=== PATIENT | male | born 1945 ===

== ENCOUNTER 2017-01-09 11:07 | Emergency (ER) | payer BC ==
[~2017-01-09] VITALS: Ht 165.1 cm; Wt 65.0 kg
[2017-01-09 11:13] VITALS: TEMP 36.5; Ht 165.1 cm; Wt 65.0 kg
[2017-01-09] MEDS ORDERED: SODIUM CHLORIDE 0.9% 1000ML 1,000 ML IV STA (12:31)
--- NOTE | 2017-01-09 12:32 | EMERGENCY ROOM VISIT NOTE ---
History Report prepared by Cecilia: Leticia Pederson Under the Supervision of: Dr. Kendy Meehan D.O. First contact with patient: 12:10 Chief Complaint: DIZZY Stated Complaint: NAUSEA/DIZZINESS Nursing Triage Summary: patient with dizziness and nausea. states he has been flying and driving and not eating or drinking right and wore his hearing add all day yesterday and doesn't usually do that. dizzinees started last night and vomiting today History of Present Illness The patient is a 71 year old male who presents to the Emergency Room with complaints of constant dizziness beginning 6 hours prior to arrival. The patient states that he is experiencing a spinning sensation and is off balanced. He notes slight dizziness when turning his head. He states that sitting up makes him feel better. The patient currently describes his sensation as a head pressure. The patient does note that he has been traveling recently and is not eating and drinking as regularly as when he is at home. Yesterday the patient was walking around [facility]. He states that this is no more activity than normal. The patient about a month ago got one hearing aid, he normally does not wear it all day but yesterday he did. The patient today began to feel nauseated. He then had abdominal pain and vomited. Since these symptoms have resolved. The patient states that he has felt like this before after a night of drinking a lot of alcohol. He notes last night he had one beer. Pt denies headache, change in vision, fevers, chest pain, shortness of breath, diarrhea, numbness, pain with urination, and melena. Source of History: patient Onset: 6 hours [employer] Position: other (global) Quality: other (dizziness) Timing: constant Associated Symptoms: + nausea, + vomiting, + abdominal pain Review of Systems See HPI for pertinent positives & negatives. A total of 10 systems reviewed and were otherwise negative. Past Medical & Surgical Medical Problems: (1) No known health problems Family History Patient reports no known family medical history. Social History Smoking Status: Former Smoker Marital Status: Housing Status: lives with significant other Occupation Status: retired Current/Historical Medications Scheduled PRN Meclizine Hcl (Meclizine Hcl), 25 MG PO TID PRN for Dizziness Allergies Coded Allergies: No Known Allergies (Unverified , 01/09/17) Physical Exam Vital Signs Date Time Temp Pulse Resp B/P (MAP) Pulse Ox O2 Delivery O2 Flow Rate FiO2 01/09/17 15:35 86 18 154/89 96 Room Air 01/09/17 15:07 82 93 Room Air 01/09/17 14:30 72 20 150/80 98 Room Air 01/09/17 13:32 70 20 153/83 98 Room Air 01/09/17 12:52 71 01/09/17 11:13 36.5 85 20 157/84 99 Room Air Physical Exam GENERAL: alert, well appearing, well nourished, no distress, non-toxic EYE EXAM: normal conjunctiva, PERRL and EOM's grossly intact OROPHARYNX: no exudate, no erythema, lips, buccal mucosa, and tongue normal and mucous membranes are moist NECK: supple, no nuchal rigidity, no adenopathy, non-tender LUNGS: Clear to auscultation. Normal chest wall mechanics HEART: no murmurs, S1 normal and S2 normal ABDOMEN: abdomen soft, non-tender, normo-active bowel sounds, no masses, no rebound or guarding. BACK: Back is symmetrical on inspection and there is no deformity, no midline tenderness, no CVA tenderness. SKIN: no rashes and no bruising UPPER EXTREMITIES: upper extremities are grossly normal. LOWER EXTREMITIES: No pitting edema. NEURO EXAM: Normal sensorium, cranial nerves II-XII grossly intact, normal speech, no gross weakness of arms, no gross weakness of legs. No drift. Finger to nose intact. Gross sensation intact. Hints exam negative. Medical Decision & Procedures ER Provider Diagnostic Interpretation: CT result has been interpreted by the radiologist and reviewed by me. CT SCAN OF THE BRAIN WITHOUT IV CONTRAST CLINICAL HISTORY: Headache and dizziness. COMPARISON STUDY: No priors. TECHNIQUE: Unenhanced axial CT scan of the brain is performed from the vertex to the skull base before and following the IV administration of 94 cc of Optiray 320. IV contrast was administered without complication. CT DOSE: 1074.96 mGy.cm FINDINGS: Brain parenchyma: There are age-related involutional changes noting mild subcortical and periventricular microangiopathic change. There is no hemorrhage, mass effect, or evidence of acute territorial ischemia by CT criteria. No enhancing mass lesion is seen on the postcontrast images. Hull-white matter is preserved. No extra-axial fluid collection is seen. Ventricles, sulci, cisterns: Prominent secondary to involutional change. Intracranial vasculature: There is atherosclerotic calcification of the cavernous carotid arteries. Calvarium: Unremarkable. Sinuses and mastoids: Trace fluid is seen within the sphenoid sinuses. Mild mucosal thickening is identified within the right sphenoid sinus and the frontal sinuses. The remaining visualized paranasal sinuses are clear. The mastoid air cells are well pneumatized. Orbits: The bony orbits are grossly intact. IMPRESSION: There is no hemorrhage, enhancing mass, or evidence of acute territorial ischemia by CT criteria. Electronically signed by: Dash Luna M.D. 01/09/2017 2:45 PM Dictated Date/Time: 01/09/2017 2:39 PM Laboratory Results 01/09/17 12:47 Red Blood Count 4.75, Mean Corpuscular Volume 91.2, Mean Corpuscular Hemoglobin 30.7, Mean Corpuscular Hemoglobin Concent 33.7, Mean Platelet Volume 11.0, Neutrophils (%) (Auto) 78.6, Lymphocytes (%) (Auto) 17.5, Monocytes (%) (Auto) 3.0, Eosinophils (%) (Auto) 0.5, Basophils (%) (Auto) 0.3, Neutrophils # (Auto) 6.27, Lymphocytes # (Auto) 1.40, Monocytes # (Auto) 0.24, Eosinophils # (Auto) 0.04, Basophils # (Auto) 0.02 01/09/17 12:47 Test 01/09/17 12:47 01/09/17 13:30 White Blood Count 7.98 K/uL (4.8-10.8) Red Blood Count 4.75 M/uL (4.7-6.1) Hemoglobin 14.6 g/dL (14.0-18.0) Hematocrit 43.3 % (42-52) Mean Corpuscular Volume 91.2 fL (80-100) Mean Corpuscular Hemoglobin 30.7 pg (25-34) Mean Corpuscular Hemoglobin Concent 33.7 g/dl (32-36) Platelet Count 199 K/uL (130-400) Mean Platelet Volume 11.0 fL (7.4-10.4) Neutrophils (%) (Auto) 78.6 % Lymphocytes (%) (Auto) 17.5 % Monocytes (%) (Auto) 3.0 % Eosinophils (%) (Auto) 0.5 % Basophils (%) (Auto) 0.3 % Neutrophils # (Auto) 6.27 K/uL (1.4-6.5) Lymphocytes # (Auto) 1.40 K/uL (1.2-3.4) Monocytes # (Auto) 0.24 K/uL (0.11-0.59) Eosinophils # (Auto) 0.04 K/uL (0-0.5) Basophils # (Auto) 0.02 K/uL (0-0.2) RDW Standard Deviation 42.2 fL (36.4-46.3) RDW Coefficient of Variation 12.6 % (11.5-14.5) Immature Granulocyte % (Auto) 0.1 % Immature Granulocyte # (Auto) 0.01 K/uL (0.00-0.02) Prothrombin Time 10.8 SECONDS (9.0-12.0) Prothromb Time International Ratio 1.0 (0.9-1.1) Anion Gap 6.0 mmol/L (3-11) Est Creatinine Clear Calc Drug Dose 72.4 ml/min Estimated GFR () 103.2 Estimated GFR (Non- 89.1 BUN/Creatinine Ratio 20.1 (10-20) Calcium Level 8.8 mg/dl (8.5-10.1) Magnesium Level 2.0 mg/dl (1.8-2.4) Total Bilirubin 1.1 mg/dl (0.2-1) Aspartate Amino Transf (AST/SGOT) 18 U/L (15-37) Alanine Aminotransferase (ALT/SGPT) 24 U/L (12-78) Alkaline Phosphatase 84 U/L (45-117) Troponin I < 0.015 ng/ml (0-0.045) Total Protein 8.0 gm/dl (6.4-8.2) Albumin 4.0 gm/dl (3.4-5.0) Globulin 4.0 gm/dl (2.5-4.0) Albumin/Globulin Ratio 1.0 (0.9-2) Thyroid Stimulating Hormone (TSH) 0.555 uIu/ml (0.300-4.500) Urine Color YELLOW Urine Appearance CLOUDY (CLEAR) Urine pH 8.5 (4.5-7.5) Urine Specific Center 1.016 (1.000-1.030) Urine Protein NEG (NEG) Urine Glucose (UA) NEG (NEG) Urine Ketones 1+ (NEG) Urine Occult Blood NEG (NEG) Urine Nitrite NEG (NEG) Urine Bilirubin NEG (NEG) Urine Urobilinogen NEG (NEG) Urine Leukocyte Esterase NEG (NEG) Urine WBC (Auto) 0 /hpf (0-5) Urine RBC (Auto) 0-4 /hpf (0-4) Urine Hyaline Casts (Auto) 0 /lpf (0-5) Urine Epithelial Cells (Auto) 5-10 /lpf (0-5) Urine Bacteria (Auto) NEG (NEG) Laboratory results per my review. Medications Administered Medications (Trade) Dose Ordered Sig/Hussain Route Start Time Stop Time Status Last Admin Dose Admin Sodium Chloride 1,000 ml @ 999 mls/hr Q1H1M STAT IV 01/09/17 12:31 01/09/17 13:31 DC 01/09/17 12:31 999 MLS/HR Meclizine HCl (Antivert Tab) 25 mg NOW STAT PO 01/09/17 13:24 01/09/17 13:25 DC 01/09/17 13:29 25 MG ECG Indication: other (dizziness) Rate (beats per minute): 75 Rhythm: normal sinus Findings: no acute ischemic change, no ectopy, other (normal axis, normal interval) ED Course 1218: The patient was evaluated in room C11. A complete history and physical exam was performed. 1231: Sodium Chloride 1,000 ml @ 999 mls/hr IV, Antivert Tab 25 mg PO. 1449: I checked on the patient. He is feeling better after the Antivert. He feels steady on his feet and are no longer having symptoms. 1502: Upon reevaluation, the patient is feeling better. I discussed the findings and the treatment plan with the patient. He verbalizes agreement and understanding. He was discharged home. Medical Decision The patient is a 71 year old male who presents to the ED with complaints of dizziness. Differential diagnosis: Etiologies such as benign positional vertigo, dehydration, hypovolemia, anemia, tumor, infection, hypoglycemia, electrolyte abnormalities, cardiac sources, intracerebral event, toxicologic, neurologic, as well as others were entertained. Medication Reconciliation: I attest that I have personally reviewed the patient' s current medication list. Blood pressure screening: Patient was found to have an elevated blood pressure and was referred to their primary doctor for recheck and further treatment. Patient well-appearing here despite complaints, no recurrence while in the emergency room, patient tolerated by mouth in and related back and forth to the bathroom several times with a steady gait. Patient with no hypoxia on testing also. Patient with no other complaints other than dizzy lightheadedness which seem positional in origin. Patient with increased walking and activity, was outside in warmer temperatures today. I feel symptoms possibly related to dehydration. Patient with negative bedside testing for central process of dizziness, CAT scan otherwise reassuring. Labs reassuring. Doubt bacteremia/ sepsis, doubt ACS given negative troponin after greater than 8 hours of symptoms. No EKG changes or dysrhythmias noted. No evidence for congestive heart failure. Doubt PE. No other GI or pathology noted. Discussed with patient close follow-up with family doctor when he returns home, discussed symptoms to watch and return for, discussed use of medications, hydration, he verbalized understanding of this was agreeable with plan. Patient given copies of all testing here to take back to physician on the [facility]. Impression Primary Impression: Dizziness Scribe Attestation The scribe's documentation has been prepared under my direction and personally reviewed by me in its entirety. I confirm that the note above accurately reflects all work, treatment, procedures, and medical decision making performed by me. Departure Information Dispostion Home / Self-Care Prescriptions Meclizine Hcl (MECLIZINE HCL) 25 Mg Tab 25 MG PO TID Y for Dizziness, #20 TAB Prov: Kendy Meehan, DO 01/09/17 Referrals No Doctor, Assigned (PCP) Forms HOME CARE DOCUMENTATION FORM, IMPORTANT VISIT INFORMATION Patient Instructions My [facility] Additional Instructions Please call and follow up with your family doctor when you return home. Please make sure you're drinking plenty of water, and avoid any strenuous activity, prolonged sun exposure, or dietary changes until you're feeling better and seen her family doctor. If you develop any recurrent dizziness, develop headaches, vision changes, nausea or vomiting, chest pain or palpitations, trouble breathing, fevers, you've any other new or concerning symptoms, please return the emergency room.
[2017-01-09 13:03] LABS: BASO % 0.3 %; BASO ABS # 0.02 K/uL (0-0.2); COMPLETE YES; EOS % 0.5 %; HEMATOCRIT 43.3 % (42-52); IG% 0.1 %; LYMPH % 17.5 %; MEAN CELL VOLUME 91.2 fL (80-100); MEAN CORPUSCULAR HEMOGLOBIN 30.7 pg (25-34); MEAN CORPUSCULAR HGB CONC 33.7 g/dl (32-36); NEUT % 78.6 %; PLATELET COUNT 199 K/uL (130-400); RED BLOOD COUNT 4.75 M/uL (4.7-6.1); WHITE BLOOD COUNT 7.98 K/uL (4.8-10.8)
[2017-01-09 13:13] LABS: PROTHROMBIN TIME (PATIENT) 10.8 SECONDS (9.0-12.0)
[2017-01-09] MEDS ORDERED: MECLIZINE HCL 25 MG TAB PO STA (13:24)
[2017-01-09 13:28] LABS: ALT/SGPT 24 U/L (12-78); AST/SGOT 18 U/L (15-37); BLOOD UREA NITROGEN 16 mg/dl (7-18); BUN/CREATININE RATIO 20.1 (10-20); CALCIUM 8.8 mg/dl (8.5-10.1); CARBON DIOXIDE 27 mmol/L (21-32); CHLORIDE 104 mmol/L (98-107); CREATININE 0.79 mg/dl (0.60-1.40); GLUCOSE 118 mg/dl (70-99); SODIUM 137 mmol/L (136-145)
[2017-01-09] MEDS ORDERED: OPTIRAY 320 IV PRN (13:30)
[2017-01-09 13:39] LABS: ALKALINE PHOSPHATASE 84 U/L (45-117); THYROID STIMULATING HORMONE 0.555 uIu/ml (0.300-4.500)
[2017-01-09 14:12] LABS: URINE APPEARANCE CLOUDY (CLEAR); URINE BILIRUBIN NEG (NEG); URINE COLOR YELLOW; URINE NITRITE NEG (NEG); URINE PH 8.5 (4.5-7.5); URINE SPECIFIC GRAVITY 1.016 (1.000-1.030); UROBILINOGEN NEG (NEG); ZZUR CULT IF INDIC CLEAN CATCH NO
[2017-01-09 14:15] LABS: MANUAL MICROSCOPIC REQUIRED? NO; REVIEW REQ? NO
--- NOTE | 2017-01-09 14:46 | DIAGNOSTIC IMAGING REPORT ---
ADDENDUM ADDENDUM: The heading of the examination is CT SCAN OF THE BRAIN COMBO as IV contrast was administered. The findings of the report are unchanged. Electronically signed by: Dash Luna M.D. 01/09/2017 3:51 PM Dictated Date/Time: 01/09/2017 3:[address] SCAN OF THE BRAIN WITHOUT IV CONTRAST CLINICAL HISTORY: Headache and dizziness. COMPARISON STUDY: No priors. TECHNIQUE: Unenhanced axial CT scan of the brain is performed from the vertex to the skull base before and following the IV administration of 94 cc of Optiray 320. IV contrast was administered without complication. CT DOSE: 1074.96 mGy.cm FINDINGS: Brain parenchyma: There are age-related involutional changes noting mild subcortical and periventricular microangiopathic change. There is no hemorrhage, mass effect, or evidence of acute territorial ischemia by CT criteria. No enhancing mass lesion is seen on the postcontrast images. Hull-white matter is preserved. No extra-axial fluid collection is seen. Ventricles, sulci, cisterns: Prominent secondary to involutional change. Intracranial vasculature: There is atherosclerotic calcification of the cavernous carotid arteries. Calvarium: Unremarkable. Sinuses and mastoids: Trace fluid is seen within the sphenoid sinuses. Mild mucosal thickening is identified within the right sphenoid sinus and the frontal sinuses. The remaining visualized paranasal sinuses are clear. The mastoid air cells are well pneumatized. Orbits: The bony orbits are grossly intact. IMPRESSION: There is no hemorrhage, enhancing mass, or evidence of acute territorial ischemia by CT criteria. Electronically signed by: Dash Luna M.D. 01/09/2017 2:45 PM Dictated Date/Time: 01/09/2017 2:39 PM
[2017-01-09] MEDS ORDERED: MECL1TAB42 PO (15:10)
[2017-01-09 15:35] VITALS: BP 154/89; PULSE 86; O2SAT 96
== END 2017-01-09 15:42 | disposition home or self-care (01) ==
LOC: C.EDC 11:12
DX: R42 Dizziness and giddiness (principal); R11.0 Nausea; Z87.891 Personal history of nicotine dependence